=== PATIENT | female | born 1995 | race Caucasian/White ===

== ENCOUNTER 2020-01-01 15:33 | Outpatient (REF) | payer BC, SELFPAY | END 2020-01-01 15:34 | disposition home or self-care (01) | LOC: HO.LAB 15:33 | PROVIDERS: PCP Nurse Practitioner; Visit Provider Internal Medicine | DX: Z20.828 Contact with and (suspected) exposure to other viral communicable diseases (principal) | CPT/HCPCS: 87635 ==